=== PATIENT | female | born 1960 | race Two or more races ===

== ENCOUNTER 2022-05-09 03:01 | Emergency (ER) | payer BC, OTHER ==
[~2022-05-09] VITALS: Ht 154.9 cm; Wt 68.0 kg
[2022-05-09 03:11] VITALS: BP 143/85
--- NOTE | 2022-05-09 03:14 | NUR ---
TO LOBBY A/W BED AMBULATORY
--- NOTE | 2022-05-09 04:20 | NUR ---
SEEN AND EXAMINED BY KENNETH
[2022-05-09] MEDS ORDERED: NACL 0.9% 1,000 ML IV SCH (04:30)
[2022-05-09] MEDS ORDERED: ONDANSETRON 4 MG/2 ML VIAL IVP ONE (04:30)
--- NOTE | 2022-05-09 04:45 | NUR ---
PT TAKEN TO BED 6
[2022-05-09 05:20] LABS: BASOPHILS % (AUTO) 0.3 % (0.0-2.0); HEMATOCRIT 43.6 % (36-48); HEMOGLOBIN 14.3 g/dL (12.0-16.0); LYMPHOCYTES # (AUTO) 1.4 K/uL (2.5-16.5); MEAN CORPUSCULAR HEMOGLOBIN 28 pg (27-31); MEAN CORPUSCULAR HGB CONC 33 g/dL (33-37); MEAN CORPUSCULAR VOLUME 84.9 fL (80-94); MONOCYTES # (AUTO) 0.2 K/uL (0.8-1.0); MONOCYTES % (AUTO) 1.9 % (1.7-9.3); NEUTROPHILS % (AUTO) 85.8 % (42.2-75.2); PLATELET COUNT (AUTO) 349 K/uL (140-450); RED BLOOD CELL COUNT(AUTO) 5.14 MIL/uL (4.20-5.40); WHITE BLOOD COUNT (AUTO) 11.6 K/uL (4.8-10.8)
[2022-05-09 05:27] LABS: ALBUMIN 4.1 g/dL (3.4-5.0); ANION GAP 10.6 (8-16); ASPARTATE AMINOTRANSFERASE 21 U/L (15-37); CHLORIDE 99 mmol/L (98-107); CREATININE 0.8 mg/dL (0.6-1.3); GFR ARICAN-AMERICAN 94 mL/min (>90); GLUCOSE 161 mg/dL (74-106); LIPASE 56 U/L (73-393); POTASSIUM 3.6 mmol/L (3.5-5.1); SODIUM SERUM 139 mmol/L (136-145); TOTAL BILIRUBIN 0.3 mg/dL (0.0-1.0); UREA NITROGEN, BLOOD 9 mg/dL (7-18)
--- NOTE | 2022-05-09 05:34 | NUR ---
X-Ray at bedside.
[2022-05-09] MEDS ORDERED: FAMOTIDINE 20 MG/2 ML VIAL IVP ONE (05:40)
[2022-05-09] MEDS ORDERED: ALUMINUM HYD/MAG/SIMETHICONE 30 ML UDC PO ONE (05:40)
[2022-05-09] MEDS ORDERED: ONDA-188 SL (05:56)
[2022-05-09] MEDS ORDERED: FAMO-347 PO (05:56)
--- NOTE | 2022-05-09 06:48 | NUR ---
PT REPORTS DECREASE IN PAIN. LAB AT BEDSIDE FOR BLOOD DRAW. AWAITING RESULTS. WILL CONTINUE TO MONITOR.
--- NOTE | 2022-05-09 06:58 | NUR ---
PT AWARE OF NEED FOR URINE. PT STATES SHE WILL LET US KNOW WHEN OR IF SHE NEEDS TO URINATE.
--- NOTE | 2022-05-09 07:17 | NUR ---
REPORT TO MEL
--- NOTE | 2022-05-09 07:20 | NUR ---
Recieved report from ROSALVA Moran for transfer of care.
[2022-05-09 07:51] LABS: APPEARANCE,URINE CLEAR (CLEAR); BILIRUBIN,URINE NEGATIVE (NEGATIVE); BLOOD, URINE NEGATIVE (NEGATIVE); COLOR,URINE YELLOW (YELLOW); LEUKOCYTE ESTERASE ,URINE TRACE (NEGATIVE); NITRITE, URINE NEGATIVE (NEGATIVE); UGLUCOSE NEGATIVE (NEGATIVE)
--- NOTE | 2022-05-09 08:22 | NUR ---
Dr. Orozco evaluating patient at bedside.
[2022-05-09 08:25] LABS: OTHER CASTS, URINE None Seen /LPF (None Seen); RBC,URINE 0-5 /HPF (0-5)
[2022-05-09 08:45] VITALS: BP 127/76
--- NOTE | 2022-05-09 08:45 | NUR ---
Patient discharged with v/s stable. Written and verbal after care instructions given. Patient alert, oriented and verbalized understanding of instructions. Ambulatory with steady gait. All questions addressed prior to discharge. ID band removed. Patient advised to follow up with PMD. Rx of Famotodine and Zofran given. Opportunity to ask questions provided and answered.
--- NOTE | 2022-05-09 09:00 | NUR ---
The patient's care was reviewed and supervised by Yesenia Vyas, RN, RN.
== END 2022-05-09 08:45 | disposition home or self-care (01) ==
LOC: MED 03:01
DX: R10.13 Epigastric pain (principal)
CPT/HCPCS: 36415; 71045; 80053; 81001; 83690; 84484; 85025; 87086; 93005; 96365; 96375; 99285; J2405; J3490; J7030

== ENCOUNTER 2023-01-06 23:45 | Emergency (ER) | payer BC ==
[~2023-01-06] VITALS: Ht 149.9 cm; Wt 68.5 kg
[2023-01-06 23:45] VITALS: BP 150/90; PULSE 92; RESP 17; TEMP 97.6; O2SAT 97
[~2023-01-06 23:45] MED LIST: FAMO-347 PO; ONDA-188 SL
--- NOTE | 2023-01-06 23:45 | NUR ---
TO BED AMBULATORY
--- NOTE | 2023-01-06 23:55 | NUR ---
ER PHYSICIAN AT PATIENT BEDSIDE ASSESSING PATIENT.
[2023-01-07 00:26] LABS: BASOPHILS # (AUTO) 0.1 K/uL (0.00-0.22); BASOPHILS % (AUTO) 0.8 % (0.0-2.0); EOSINOPHILS # (AUTO) 0.1 K/uL (0-0.4); EOSINOPHILS % (AUTO) 1.1 % (0.0-4.0); HEMATOCRIT 39.4 % (36-48); HEMOGLOBIN 13.2 g/dL (12.0-16.0); LYMPHOCYTES # (AUTO) 2.5 K/uL (2.5-16.5); LYMPHOCYTES % (AUTO) 29.1 % (20.5-51.1); MEAN CORPUSCULAR HEMOGLOBIN 28 pg (27-31); MEAN CORPUSCULAR HGB CONC 33 g/dL (33-37); MEAN CORPUSCULAR VOLUME 84.6 fL (80-94); MONOCYTES # (AUTO) 0.6 K/uL (0.8-1.0); MONOCYTES % (AUTO) 6.4 % (1.7-9.3); NEUTROPHILS # (AUTO) 5.5 K/uL (1.8-7.7); NEUTROPHILS % (AUTO) 62.6 % (42.2-75.2); PLATELET COUNT (AUTO) 322 K/uL (140-450); RED BLOOD CELL COUNT(AUTO) 4.67 MIL/uL (4.20-5.40); RED CELL DISTRIBUTION WIDTH 14.1 % (11.6-13.7); WHITE BLOOD COUNT (AUTO) 8.8 K/uL (4.8-10.8)
[2023-01-07] MEDS: NACL 0.9% 1,000 ML IV SCH (00:28)
[2023-01-07 00:35] LABS: APPEARANCE,URINE CLEAR (CLEAR); BILIRUBIN,URINE NEGATIVE (NEGATIVE); BLOOD, URINE TRACE-I (NEGATIVE); COLOR,URINE YELLOW (YELLOW); LEUKOCYTE ESTERASE ,URINE 1+ (NEGATIVE); NITRITE, URINE NEGATIVE (NEGATIVE); PH,URINE 6.5 (5.0-9.0); UGLUCOSE NEGATIVE (NEGATIVE)
[2023-01-07 00:46] LABS: RBC,URINE 0-5 /HPF (0-5)
[2023-01-07 00:54] LABS: ALBUMIN 3.6 g/dL (3.4-5.0); ANION GAP 10.4 (8-16); ASPARTATE AMINOTRANSFERASE 22 U/L (15-37); CARBON DIOXIDE 31.3 mmol/L (21-32); CHLORIDE 102 mmol/L (98-107); CREATININE 0.7 mg/dL (0.6-1.3); GFR ARICAN-AMERICAN 109 mL/min (>90); GLUCOSE 138 mg/dL (74-106); LIPASE 84 U/L (73-393); POTASSIUM 3.7 mmol/L (3.5-5.1); SODIUM SERUM 140 mmol/L (136-145); TOTAL BILIRUBIN 0.2 mg/dL (0.0-1.0); UREA NITROGEN, BLOOD 10 mg/dL (7-18)
--- NOTE | 2023-01-07 01:00 | NUR ---
PATIENT RESTING IN BED, A/OX4, CHEST RISE AND FALL SYMMETRICAL, NO S/S OF DISTRESS, ON MONITOR, CALL LIGHT WITHIN REACH.
[2023-01-07] MEDS: ALUMINUM HYD/MAG/SIMETHICONE 30 ML UDC PO ONE (01:45)
[2023-01-07] MEDS: ONDANSETRON 4 MG ODT PO ONE (01:46)
[2023-01-07] MEDS: FAMOTIDINE 20 MG TAB PO ONE (01:46)
--- NOTE | 2023-01-07 03:00 | NUR ---
PATIENT RESTING IN BED, A/OX4, CHEST RISE AND FALL SYMMETRICAL, NO S/S OF DISTRESS, ON MONITOR, CALL LIGHT WITHIN REACH.
[2023-01-07] MEDS ORDERED: OMEP40EC23 PO (04:20)
[2023-01-07 04:50] VITALS: BP 117/85; PULSE 87; RESP 16; TEMP 98.2; O2SAT 100
== END 2023-01-07 04:50 | disposition home or self-care (01) ==
LOC: MED 23:45
DX: R10.13 Epigastric pain (principal); R11.2 Nausea with vomiting, unspecified; R19.7 Diarrhea, unspecified; Z20.822 Contact with and (suspected) exposure to COVID-19; Z98.890 Other specified postprocedural states; Z90.710 Acquired absence of both cervix and uterus; Z79.899 Other long term (current) drug therapy
CPT/HCPCS: 36415; 80053; 81001; 83690; 84484; 85025; 87086; 87426; 87804; 93005; 96360; 99285; J7030